=== PATIENT | female | born 1950 | race Caucasian/White ===

== ENCOUNTER → 2016-09-07 | Outpatient (CLI) | payer OTHER ==
[2016-09-07 10:03] LABS: ALBUMIN 3.5 GM/DL (3.2-5.2); BILIRUBIN,DIRECT 0.1 MG/DL (0.0-0.2); BILIRUBIN,TOTAL 0.3 MG/DL (0.2-1.0)
== END ==
LOC: M WUC 08:14
PROVIDERS: ATTEND Family Medicine
DX: E78.2 Mixed hyperlipidemia (principal)

== ENCOUNTER → 2018-02-14 | Outpatient (CLI) | payer MEDICARE, BC, OTHER | LOC: M EKG 07:47 | DX: I10 Essential (primary) hypertension (principal) | CPT/HCPCS: 93005 ==

== ENCOUNTER 2018-02-17 07:53 | Day surgery (SDC) | payer MEDICARE, BC, OTHER ==
[2018-02-17] MEDS ORDERED: PROPOFOL 200 MG/20 ML VIAL As Ordered ×2 (08:01→08:02)
[2018-02-17] MEDS ORDERED: dexameTHASONE 4 MG/ML 1ML VIAL (J1100) As Ordered (08:02)
[2018-02-17] MEDS ORDERED: LIDOCAINE 2% INJ 100 MG/5 ML SDV (FOR ANES.) As Ordered (08:02)
[2018-02-17] MEDS ORDERED: ROCURONIUM BROMIDE 50 MG/5 ML VIAL As Ordered (08:02)
[2018-02-17] MEDS ORDERED: ONDANSETRON 4MG/2ML VIAL (J2405) As Ordered (08:02)
[2018-02-17] MEDS ORDERED: MIDAZOLAM INJ 2 MG/2 ML VIAL (J2250) As Ordered (08:03)
[2018-02-17] MEDS ORDERED: fentaNYL 250 MCG/5 ML INJECTION (J3010) As Ordered (08:03)
[2018-02-17] MEDS ORDERED: LIDOCAINE 1% MDV 20ML VIAL SQ (08:15)
[2018-02-17] MEDS: LR 1,000 ML IV (08:32)
[2018-02-17] MEDS: LevoFLOXacin IV 500 MG in APPROPRIATE DILUENT 1 EA IV (08:48)
[2018-02-17] MEDS ORDERED: GLYCOPYRROLATE INJ 0.2 MG/ML 2 ML VIAL As Ordered ×2 (09:46)
[2018-02-17] MEDS ORDERED: NEOSTIGMINE 10 MG/10 ML VIAL (J2710) As Ordered (09:46)
[2018-02-17] MEDS ORDERED: KETOROLAC 60 MG/2 ML VIAL (J1885) As Ordered (09:56)
[2018-02-17] MEDS: GLUCAGON FOR INJ 1 MG VIAL (J1610) As Ordered (10:10)
[2018-02-17] MEDS: BUPIVACAINE/EPIN 0.25% 30 ML VIAL As Ordered (10:10)
[2018-02-17] MEDS ORDERED: LABETALOL HCL 100 MG/20 ML VIAL As Ordered (10:17)
[2018-02-17] MEDS ORDERED: PERCOCET 5MG/325MG TAB As Ordered (10:37)
[2018-02-17] MEDS ORDERED: fentaNYL 100 MCG/2 ML INJECTION (J3010) As Ordered (10:44)
[2018-02-17] MEDS: PERCOCET 5MG/325MG TAB PO (10:45)
[2018-02-17] MEDS: fentaNYL 100 MCG/2 ML INJECTION (J3010) IV (10:50)
[2018-02-17] MEDS ORDERED: NORCO, ANEXSIA 5/325MG TABLET (HYDROcodone/ACETAMINOPHEN) PO (11:00)
[2018-02-17] MEDS ORDERED: MORPHINE 4 MG/ML 1ML VIAL/SYRINGE (J2270) IV (11:00)
[2018-02-17] MEDS ORDERED: LR 1,000 ML IV ×2 (11:00)
[2018-02-17] MEDS ORDERED: ONDANSETRON 4MG/2ML VIAL (J2405) IV ×2 (11:00)
[2018-02-17] MEDS ORDERED: ALBUTEROL SULFATE 2.5 MG/0.5 ML INH NEB SOLN As Ordered (11:12)
[2018-02-17] MEDS: ALBUTEROL SULFATE 2.5 MG/0.5 ML INH NEB SOLN INH (11:16)
== END 2018-02-17 12:55 | disposition home or self-care (01) ==
LOC: M SDC 07:53
DX: K80.18 Calculus of gallbladder with other cholecystitis without obstruction (principal); I10 Essential (primary) hypertension; R06.02 Shortness of breath; F17.210 Nicotine dependence, cigarettes, uncomplicated; Z79.899 Other long term (current) drug therapy; Z79.82 Long term (current) use of aspirin; Z88.0 Allergy status to penicillin
CPT/HCPCS: 47562

== ENCOUNTER → 2021-03-12 | Outpatient (CLI) | payer MEDICARE, BC, OTHER ==
[~2021-03-12] MED LIST: ASPI81TA26 PO; BIMA01SOL OU; DORZ2OPD OU; HYDR-3490 PO; LISI20TA33 PO; OMEP40CA4 PO; PROAAER10 INH; RANI300T PO; VITA200015 PO
== END ==
LOC: M SOG 08:49
PROVIDERS: ATTEND Orthopaedic Surgery Sports Medicine
DX: M17.0 Bilateral primary osteoarthritis of knee (principal)

== ENCOUNTER → 2021-03-25 | Outpatient (CLI) | payer MEDICARE, BC, OTHER ==
--- NOTE | 2021-03-25 08:20 | REP ---
INDICATION: HX OF NICOTINE DEPENDENCE. COMPARISON: Chest x-ray 10/19/2007 TECHNIQUE: Low-dose screening lung CT protocol FINDINGS: The lung mcduffie are well inflated. A para fissural 3 mm nodule right upper lobe posteromedially on image 28 is noted. I do not see other right lung nodules. There is dependent atelectatic change posteriorly in the mid to lower lung zone. No pleural effusion. There is also some minor dependent atelectatic change in the mid to lower left lung. No definite nodule, mass or acute infiltrate. There is no pleural thickening, calcified pleural plaque or other acute finding. IMPRESSION: Lung RADS category 2 benign, benign findings. No evidence of malignancy. Patients with this category of findings have less than 1% chance of malignancy at the time of the examination. For patients at high risk of developing a lung malignancy, annual follow-up low-dose screening CT recommended. <Electronically signed by Arnulfo Zhou > 03/25/21 0831
== END ==
LOC: M RAD 07:30
PROVIDERS: ATTEND Family Medicine
DX: Z12.2 Encounter for screening for malignant neoplasm of respiratory organs (principal); Z87.891 Personal history of nicotine dependence

== ENCOUNTER → 2022-01-20 | Outpatient (CLI) | payer MEDICARE, BC, OTHER | LOC: M SOG 08:07 | PROVIDERS: ATTEND Orthopaedic Surgery Adult Reconstructive Orthopaedic Surgery | DX: M17.0 Bilateral primary osteoarthritis of knee (principal) ==

== ENCOUNTER → 2022-05-12 | Outpatient (CLI) | payer MEDICARE, BC, OTHER | LOC: M WHC 09:07 | PROVIDERS: ATTEND Family Medicine | DX: Z12.31 Encounter for screening mammogram for malignant neoplasm of breast (principal); Z13.820 Encounter for screening for osteoporosis ==

== ENCOUNTER → 2022-08-23 | Outpatient (CLI) | payer MEDICARE, BC, OTHER ==
[~2022-08-23] MED LIST changes: +AMLO1TAB24 PO; +ATOR1TAB19 PO; +D-20TAB PO; +HYDR-3363 PO; +PROA1AER2 INH; +TRUS1SOL OU
== END ==
LOC: M LABSMTC 09:42
PROVIDERS: ATTEND Anesthesiology
DX: Z01.812 Encounter for preprocedural laboratory examination (principal); Z11.52 Encounter for screening for COVID-19

== ENCOUNTER 2022-08-26 11:22 | Day surgery (SDC) | payer MEDICARE, BC, OTHER ==
[~2022-08-26] VITALS: Ht 157.5 cm; Wt 108.0 kg
[~2022-08-26 11:22] MED LIST changes: +NS 1,000 ML IV ONE
[2022-08-26] MEDS ORDERED: LIDOCAINE 2% 100MG/5ML SDV (FOR ANES.) As Ordered ONE (12:13)
[2022-08-26] MEDS ORDERED: propofoL 200 MG/20 ML VIAL As Ordered ONE ×2 (12:13→12:59)
[2022-08-26 14:08] VITALS: BP 138/71
== END 2022-08-26 14:05 | disposition home or self-care (01) ==
LOC: M OPP 11:22
PROVIDERS: ATTEND Surgery
DX: K57.30 Diverticulosis of large intestine without perforation or abscess without bleeding (principal); R19.5 Other fecal abnormalities; Z79.02 Long term (current) use of antithrombotics/antiplatelets; Z79.51 Long term (current) use of inhaled steroids; Z79.82 Long term (current) use of aspirin; Z79.899 Other long term (current) drug therapy; Z88.0 Allergy status to penicillin; I10 Essential (primary) hypertension; E78.00 Pure hypercholesterolemia, unspecified; M54.9 Dorsalgia, unspecified; Z80.52 Family history of malignant neoplasm of bladder

== ENCOUNTER → 2023-02-24 | Outpatient (CLI) | payer MEDICARE, BC, OTHER ==
[~2023-02-24] MED LIST changes: -NS 1,000 ML IV ONE
== END ==
LOC: M SOG 10:26
PROVIDERS: ATTEND Physician Assistant
DX: M17.0 Bilateral primary osteoarthritis of knee (principal)

== ENCOUNTER → 2023-07-19 | Day surgery (SDC) | payer MEDICARE, BC, OTHER ==
[~2023-07-19] VITALS: Ht 158.8 cm; Wt 113.4 kg
[~2023-07-19] MED LIST changes: +BSS IRR 500ML/OMIDRIA 4ML IRR BAG (OR ONLY) As Ordered ONE; +CEFUROXIME 1MG/0.1ML INTRACAMERAL INJ As Ordered ONE; +CYCLOPENTOLATE 1% OPHTH SOLN 2ML BTL OD SCH; +DORZ2SOL5 OU; +LIDOCAINE 1% SDV 5ML VIAL As Ordered ONE; +LISI40TA4 PO; +MIDAZOLAM INJ 2MG/2ML VIAL As Ordered ONE; +OFLOXACIN 0.3 % (OCUFLOX) OPTH SOL 5ML OD SCH; +OMEP40CA5 PO; +PHENYLEPHRINE 2.5% OPHTH SOL 2ML OD SCH; +PROPARACAINE 0.5% OPHTH SOL 15ML OD ONE; +ROPI0.5T33 PO; +TOBRADEX OPHTH OINT 3.5 GM As Ordered ONE; +TROPICAMIDE 1% OPHTH SOLN 15ML OD SCH; +fentaNYL 100 MCG/2 ML INJECTION As Ordered ONE
[2023-07-19 09:02] VITALS: BP 136/74; TEMP 96; O2SAT 98
== END | disposition home or self-care (01) ==
LOC: M SDC 06:36
PROVIDERS: ATTEND Ophthalmology
DX: H25.11 Age-related nuclear cataract, right eye (principal); H40.811 Glaucoma with increased episcleral venous pressure, right eye; I10 Essential (primary) hypertension; E78.5 Hyperlipidemia, unspecified; K21.9 Gastro-esophageal reflux disease without esophagitis; F41.9 Anxiety disorder, unspecified; J45.909 Unspecified asthma, uncomplicated; Z87.891 Personal history of nicotine dependence; G47.33 Obstructive sleep apnea (adult) (pediatric); Z79.82 Long term (current) use of aspirin; Z79.899 Other long term (current) drug therapy; Z79.51 Long term (current) use of inhaled steroids
CPT/HCPCS: 65820; 66984; C1889; J0697; J1097; J2250; J3010; V2632

== ENCOUNTER → 2024-03-22 | Outpatient (CLI) | payer MEDICARE, BC ==
[~2024-03-22] MED LIST changes: -BSS IRR 500ML/OMIDRIA 4ML IRR BAG (OR ONLY) As Ordered ONE; -CEFUROXIME 1MG/0.1ML INTRACAMERAL INJ As Ordered ONE; -CYCLOPENTOLATE 1% OPHTH SOLN 2ML BTL OD SCH; -LIDOCAINE 1% SDV 5ML VIAL As Ordered ONE; -MIDAZOLAM INJ 2MG/2ML VIAL As Ordered ONE; -OFLOXACIN 0.3 % (OCUFLOX) OPTH SOL 5ML OD SCH; -PHENYLEPHRINE 2.5% OPHTH SOL 2ML OD SCH; -PROPARACAINE 0.5% OPHTH SOL 15ML OD ONE; -TOBRADEX OPHTH OINT 3.5 GM As Ordered ONE; -TROPICAMIDE 1% OPHTH SOLN 15ML OD SCH; -fentaNYL 100 MCG/2 ML INJECTION As Ordered ONE
== END ==
LOC: M RAD 08:33
PROVIDERS: ATTEND Family Medicine
DX: Z12.2 Encounter for screening for malignant neoplasm of respiratory organs (principal); Z87.891 Personal history of nicotine dependence

== ENCOUNTER → 2024-09-14 | Outpatient (CLI) | payer MEDICARE, BC | LOC: M WHC 10:45 | PROVIDERS: ATTEND Family Medicine | DX: Z53.9 Procedure and treatment not carried out, unspecified reason (principal) ==

== ENCOUNTER → 2024-09-24 | Outpatient (CLI) | payer MEDICARE, BC | LOC: M WHC 10:52 | PROVIDERS: ATTEND Family Medicine | DX: Z12.31 Encounter for screening mammogram for malignant neoplasm of breast (principal) ==

== ENCOUNTER 2025-04-01 07:51 | Day surgery (SDC) | payer MEDICARE, BC ==
[~2025-04-01] VITALS: Ht 162.6 cm; Wt 106.1 kg
[~2025-04-01 07:51] MED LIST changes: +LISI40TA10 PO; -LISI40TA4 PO; +LR 1,000 ML IV SCH
[2025-04-01] MEDS: PHENYLEPHRINE 2.5% OPHTH SOL 2ML OS SCH (09:18)
[2025-04-01] MEDS: TETRACAINE 0.5% OPHTH SOLN 4ML OS SCH (09:18)
[2025-04-01] MEDS: FLURBIPROFEN 0.03% OPHTH SOLN 2.5 ML OS SCH (09:19)
[2025-04-01] MEDS: CYCLOPENTOLATE 1% OPHTH SOLN 2 ML BTL OS SCH (09:19)
[2025-04-01] MEDS ORDERED: MIDAZOLAM INJ 2 MG/2 ML VIAL As Ordered ONE (09:31)
[2025-04-01] MEDS: PROVISC 10 MG/ML 0.85ML SYRINGE As Ordered ONE (10:09)
[2025-04-01] MEDS: VISCOAT 40-30MG/ML 0.5ML SYRINGE As Ordered ONE (10:09)
[2025-04-01] MEDS: LIDOCAINE 1% SDV 5 ML VIAL As Ordered ONE (10:19)
[2025-04-01] MEDS: TRYPAN BLUE 0.06 % 2.25 ML OPHTH SYR (VISIONBLUE) As Ordered ONE (10:20)
[2025-04-01] MEDS: CEFUROXIME 1 MG/0.1 ML INTRACAMERAL INJ As Ordered ONE (10:21)
[2025-04-01 10:47] VITALS: BP 133/59; TEMP 97.4; O2SAT 98
== END 2025-04-01 11:02 | disposition home or self-care (01) ==
LOC: M SDC 07:51
PROVIDERS: ATTEND Ophthalmology
DX: H40.1122 Primary open-angle glaucoma, left eye, moderate stage (principal); H25.12 Age-related nuclear cataract, left eye; I10 Essential (primary) hypertension; R73.03 Prediabetes; J45.909 Unspecified asthma, uncomplicated; E78.2 Mixed hyperlipidemia; K21.9 Gastro-esophageal reflux disease without esophagitis; Z79.899 Other long term (current) drug therapy; Z79.82 Long term (current) use of aspirin; Z98.41 Cataract extraction status, right eye; Z90.89 Acquired absence of other organs; Z90.710 Acquired absence of both cervix and uterus; Z88.0 Allergy status to penicillin
CPT/HCPCS: 65820; 66984; C1889; J0697; J2250; J3010; V2632